=== PATIENT | female | born 1955 | race Caucasian/White ===

== ENCOUNTER 2017-12-06 10:37 | Outpatient (CLI) | payer OTHER | END 2017-12-06 11:20 | disposition home or self-care (01) | LOC: NUCLEAR 10:37 | DX: M81.0 Age-related osteoporosis without current pathological fracture (principal); I49.8 Other specified cardiac arrhythmias; R94.6 Abnormal results of thyroid function studies; Z83.3 Family history of diabetes mellitus; Z80.3 Family history of malignant neoplasm of breast; N60.22 Fibroadenosis of left breast; N25.81 Secondary hyperparathyroidism of renal origin; E55.9 Vitamin D deficiency, unspecified; Z80.0 Family history of malignant neoplasm of digestive organs; K57.30 Diverticulosis of large intestine without perforation or abscess without bleeding ==

== ENCOUNTER 2020-01-03 15:02 | Outpatient (CLI) | payer OTHER | END 2020-01-03 15:15 | disposition home or self-care (01) | LOC: NUCLEAR 15:02 | PROVIDERS: ATTEND Specialist | DX: M81.0 Age-related osteoporosis without current pathological fracture (principal) ==

== ENCOUNTER 2021-10-08 08:16 | Outpatient (CLI) | payer OTHER | END 2021-10-08 08:26 | disposition home or self-care (01) | LOC: RAD 08:16 | PROVIDERS: ATTEND Internal Medicine Rheumatology | DX: M15.8 Other polyosteoarthritis (principal) ==

== ENCOUNTER 2022-02-16 13:25 | Outpatient (CLI) | payer OTHER | END 2022-02-16 13:28 | disposition home or self-care (01) | LOC: NUCLEAR 13:25 | PROVIDERS: ATTEND Specialist | DX: M81.0 Age-related osteoporosis without current pathological fracture (principal) ==

== ENCOUNTER 2024-04-10 13:42 | Outpatient (CLI) | payer OTHER | END 2024-04-10 13:43 | disposition home or self-care (01) | LOC: NUCLEAR 13:42 | PROVIDERS: ATTEND Specialist | DX: M81.0 Age-related osteoporosis without current pathological fracture (principal) ==